=== PATIENT | male | born 1975 | race Caucasian/White ===

== ENCOUNTER 2019-05-11 19:22 | Emergency (ER) | payer BC, MEDICAID ==
[2019-05-11] MEDS ORDERED: Lidocaine 1% 30 ML SDV INJECT ONE (19:56)
[2019-05-11] MEDS ORDERED: Take Home: Acetaminophen/HYDROcodone 325-5 MG, 5 Tab Pack PO ONE (20:22)
--- NOTE | 2019-05-11 20:49 | EDM.PDOC ---
ED HPI GENERAL MEDICAL PROBLEM - General Chief Complaint: Upper Extremity Injury/Pain Stated Complaint: Right thumb injury, laceration Time Seen by Provider: 05/11/19 19:25 Source of Information: Reports: Patient, RN Notes Reviewed History Limitations: Reports: No Limitations - History of Present Illness INITIAL COMMENTS - FREE TEXT/NARRATIVE: Pt. states that he sustained a crush injury in his R thumb just prior to coming to ER. He states that he did this with a ladder. He states that his tetanus is UTD until 2024. His primary complaint is that of throbbing and discoloration of the R thumb nail. He also sustained a superficial laceration to the tip of the thumb as well. He denies injury elsewhere other than what is isolated to the 1st digit of the R hand. Pt. is quite slow to respond but denies consumption of drugs or alcohol tonight. He states that he has a head injury that affects his speech. Onset: Today Onset Date: 05/11/19 Location: Reports: Lower Extremity, Right Quality: Reports: Throbbing Treatments HIDE AND SKIN COLERER: Reports: Other (see below) Right thumb Pain Score (Numeric/FACES): 10 - Related Data Allergies Allergy/AdvReac Type Severity Reaction Status Date / Time amoxicillin Allergy Cannot Verified 05/11/19 20:04 Remember oxycodone Allergy Cannot Verified 05/11/19 20:04 Remember shellfish derived Allergy Cannot Verified 05/11/19 20:04 Remember trazodone Allergy Other Verified 05/11/19 19:45 Home Meds: Home Meds . [Unable to Verify Home Med List] 05/11/19 [History] Past Medical History Musculoskeletal History: Reports: Other (See Below) Other Musculoskeletal History: Degenerative disc disease Psychiatric History: Reports: Anxiety - Past Surgical History Musculoskeletal Surgical History: Reports: Arthroscopic Knee, Other (See Below) Other Musculoskeletal Surgeries/Procedures:: Neck fusion, C5-6, elbow surgery, Scope knees bilaterally Review of Systems - Review of Systems Review Of Systems: ROS reveals no pertinent complaints other than HPI. ED EXAM, GENERAL - Physical Exam Exam: See Below Exam Limited By: No Limitations General Appearance: Alert, WD/WN, No Apparent Distress Extremities: Other (Edema to R thumb. Subungual hematoma noted. Superficial laceration to tip of the digit. No obvious crepitus or deformity noted.) Neurological: Alert, Oriented, Slow to Respond ED TRAUMA EXTREMITY PROCEDURES - Laceration/Wound Repair Right Distal Digit - 1st (Thumb) Lac/Wound Length In cm: 1 Appearance: Subcutaneous Distal NVT: Neuro & Vascular Intact, No Tendon Injury Anesthetic Type: Digital Local Anesthesia - Lidocaine (Xylocaine): 1% Plain Local Anesthetic Volume: 4cc Skin Prep: Chlorhexidine (Hibiciens), Saline Saline Irrigation (cc's): 1,000 Exploration/Debridement/Repair: Wound Explored Closed With: Dermabond - Additional/Other Procedure(s) Other (Free Text) Procedure(s): Digital block performed to 1st digit of R hand. Hand was thoroughly irrigated with NS and chlorhexidine. Using sterile technique, 2 trephination holes were placed into the nail of the digit. No blood return. This was performed using Bovie disposable cautery pen. Then, dermabond was used to close the laceration to tip of R thumb. Pt. tolerated procedures well. Course - Vital Signs Last Recorded V/S: Last Vital Signs Temp 36.4 C 05/11/19 19:25 Pulse 102 H 05/11/19 19:25 Resp 16 05/11/19 19:25 BP 121/79 05/11/19 19:25 Pulse Ox - Orders/Labs/Meds Orders: Active Orders 24 hr Category Date Time Status Fingers Thumb Rt F5 [CR] Stat Exams 05/11/19 19:45 Taken Meds: Medications Discontinued Medications Generic Name Dose Route Start Last Admin Trade Name Freq PRN Reason Stop Dose Admin Hydrocodone Bitart/Acetaminophen 1 packet 05/11/19 20:22 05/11/19 20:28 Take Home: Acetam/Hydrocodon 325-5 Mg, 5 Pack PO 05/11/19 20:23 1 packet ONETIME ONE Administration Lidocaine HCl 30 ml 05/11/19 19:56 05/11/19 20:05 Xylocaine-Mpf 1% INJECT 05/11/19 19:57 4 ml ONETIME ONE Administration - Radiology Interpretation Free Text/Narrative:: Radiographs of R thumb obtained and showed no fracture or dislocation. Departure - Departure Time of Disposition: 08:58 Disposition: Home, Self-Care 01 Condition: Good Clinical Impression: Subungual hematoma of finger of right hand, Laceration of finger of right hand - Discharge Information Instructions: Subungual Hematoma, [id number], Laceration Care, Adult Referrals: Priyank Givens MD [Primary Care Provider] - Forms: ED Department Discharge Additional Instructions: Keep finger dry for 24 hours. Ibuprofen 200mg 3 tabs every 6 hours as needed for pain Allouez 5/325mg 1 every 6 hours as needed for pain severe pain Return to ER if follow-up in clinic if there is any redness, swelling, or discharge from the area. - My Orders Last 24 Hours: My Active Orders 05/11/19 19:45 Fingers Thumb Rt F5 [CR] Stat - Assessment/Plan Last 24 Hours: My Active Orders 05/11/19 19:45 Fingers Thumb Rt F5 [CR] Stat Plan: Keep finger dry for 24 hours. Ibuprofen 200mg 3 tabs every 6 hours as needed for pain Allouez 5/325mg 1 every 6 hours as needed for pain severe pain Return to ER if follow-up in clinic if there is any redness, swelling, or discharge from the area.
--- NOTE | 2019-05-11 20:53 | CR ---
[id number] RAD/RAD Fingers Right Exam: RAD Fingers Right Indication:HIT THUMB WITH LADDER Comparison: No prior imaging for comparison. Discussion: Soft tissue laceration at the tip of the 1st digit. No fracture or dislocation. Impression: As above. Isaac Torre MD 05/11/19 [id number] Thank you for allowing us to participate in the care of your patient.
== END 2019-05-11 20:40 | disposition home or self-care (01) ==
LOC: VM.ED 19:22
DX: S61.111A Laceration without foreign body of right thumb with damage to nail, initial encounter (principal); S60.111A Contusion of right thumb with damage to nail, initial encounter; Z88.1 Allergy status to other antibiotic agents; Z88.5 Allergy status to narcotic agent; Z91.013 Allergy to seafood; Z88.8 Allergy status to other drugs, medicaments and biological substances; W23.1XXA Caught, crushed, jammed, or pinched between stationary objects, initial encounter
CPT/HCPCS: 11740; 12001; 73140; 99283; A9270; J2001; 64450